=== PATIENT | female | born 1950 | race Caucasian/White ===

== ENCOUNTER → 2018-03-30 08:10 | Outpatient (CLI) | payer MEDICARE, OTHER, SELFPAY ==
[2018-03-30 10:22] LABS: Vitamin D 25 Hydroxy (D3) 45.5 ng/mL (30.0-100.0)
[2018-03-30 12:04] LABS: Collection Time Urine 24 Hours; Creatinine 24 Hour Urine 899 mg/day (800-1800); Creatinine Urine Random 57.1 mg/dL; Total Volume Urine 1575 mL
[2018-03-30 15:47] LABS: Calcium 24 Hour Urine 261 mg/day (100-300); Calcium Urine Random 16.6; Collection Time Urine 24 Hours; Total Volume Urine 1575 mL
== END ==
PROVIDERS: Family Provider Nurse Practitioner Family; PCP Nurse Practitioner Family; Visit Provider Internal Medicine Endocrinology, Diabetes & Metabolism
DX: M81.0 Age-related osteoporosis without current pathological fracture (principal)
CPT/HCPCS: 36415; 82306; 82340; 82570

== ENCOUNTER 2021-05-08 08:39 | Emergency (ER) | payer MEDICARE, OTHER, SELFPAY ==
[2021-05-08 09:13] VITALS: BP 114/62; PULSE 76; RESP 14; TEMP 36.8; O2SAT 98; BMI 17.6
--- NOTE | 2021-05-08 09:18 | DI.RAD.S_ITS ---
PROCEDURE: XR WRIST LT MIN 3V INDICATIONS: fall with wrist pain TECHNIQUE: 4 views of the wrist were acquired. COMPARISON: None. FINDINGS: Bones: No acute fractures or dislocations. There is moderate to severe degeneration at the 1st carpometacarpal joint with joint space narrowing, subchondral sclerosis, periarticular osteophytosis, and subchondral cystic changes. There is mild to moderate degeneration at the triscaphe articulation. No suspicious bony lesions. Scaphoid view: Scaphoid appears intact. Soft tissues: There is a small oval calcification measuring up to 0.3 cm adjacent to the trapezium. IMPRESSION: 1. No acute fracture or dislocation. 2. Small oval calcification adjacent to the trapezium suggestive of a prior sprain or avulsion injury along the radial aspect of the carpus. Dictated by: Bacilio Calix M.D. on 05/08/2021 at 9:42 Approved by: Bacilio Calix M.D. on 05/08/2021 at 9:50
--- NOTE | 2021-05-08 09:26 | DI.RAD.S_ITS ---
PROCEDURE: XR HAND LT MIN 3V INDICATIONS: pain/injury TECHNIQUE: 3 views of the hand(s) acquired. COMPARISON: [facility], CR, XR WRIST LT MIN 3V, 05/08/2021, 9:19. FINDINGS: Bones: No acute fractures or dislocations. There is moderate to severe degeneration at the 1st carpometacarpal joint with joint space narrowing, subchondral sclerosis, osteophytosis, and subchondral cystic changes. There is mild to moderate degeneration at the triscaphe articulation. Mild degeneration also noted at the radiocarpal joint. There is degeneration of the interphalangeal joints including moderate degeneration at the 3rd DIP joint. No suspicious bony lesions. Soft tissues: There is a small oval calcification measuring up to 3 mm adjacent to the trapezium. IMPRESSION: 1. No acute fracture or dislocation. 2. Small calcification adjacent to the trapezium likely representing sequelae of a prior avulsion injury or sprain along the radial aspect of the carpus. 3. Osteoarthritic changes of the hand as described including moderate to severe degeneration at the 1st carpometacarpal joint and moderate degeneration at the 3rd DIP joint. Dictated by: Bacilio Calix M.D. on 05/08/2021 at 9:50 Approved by: Bacilio Calix M.D. on 05/08/2021 at 9:52
--- NOTE | 2021-05-08 09:40 | ED.LOWEXIN ---
HPI - Extremity Injury (Lower) General Chief Complaint: Extremity Injury, Upper Stated Complaint: FELL AND HURT WRIST Time Seen by Provider: 05/08/21 09:24 Source: patient Mode of arrival: Ambulatory Limitations: no limitations History of Present Illness HPI Narrative: Patient is right handed. She slipped and fell yesterday on concrete. Fell backwards and posted her left hand out. She has iced the wrist area. Has taken ibuprofen as well. No numbness tingling or weakness. No previous injury to this hand or wrist. Denies any other injury Related Data Home Medications Medication Instructions Recorded Confirmed alendronate 70 mg tablet 70 mg PO QWEEK #0 01/30/17 aspirin 81 mg tablet,delayed 81 mg PO DAILY 05/21/19 05/21/19 release (Adult Aspirin Regimen) biotin PO 05/21/19 05/21/19 calcium carbonate [Antacid PO 05/21/19 05/21/19 (calcium carbonate)] coenzyme Q10 10 mg capsule (Co 10 mg PO ONCE 05/21/19 05/21/19 Q-10) magnesium carbonate PO 05/21/19 05/21/19 metoprolol succinate 25 mg capsule 25 mg PO DAILY 05/21/19 05/21/19 sprinkle, ext. release 24 hr multivitamin 1 tab PO DAILY 05/21/19 05/21/19 omega-3 fatty acids 1,000 mg 1,000 mg PO DAILY 05/21/19 05/21/19 capsule trazodone 50 mg tablet 25 mg PO BEDTIME PRN 05/21/19 05/21/19 Allergies Allergy/AdvReac Type Severity Reaction Status Date / Time meperidine [From Demerol] AdvReac Intermediate vomiting Verified 05/08/21 09:18 oxycodone [OXYCODONE] AdvReac Mild vomiting Verified 05/08/21 09:18 Review of Systems Review of Systems Narrative: GENERAL: Denies chills, fatigue, malaise, fever, sweats. HEENT: Denies sinus pain, ear pain, sore throat RESPIRATORY: Denies dyspnea, cough CARDIOVASCULAR: Denies chest pain, palpitations GASTROINTESTINAL: Denies nausea, vomiting, abdominal pain : Denies dysuria, frequency, hematuria MUSCULOSKELETAL: Positive muscle or bony pain SKIN: Denies rash, skin lesions NEUROLOGIC: Denies weakness, numbness ROS Unobtainable: All systems reviewed & are unremarkable except as noted in HPI and below Patient History Social History Smoking Status: Unknown if ever smoked Smoking Status: Unknown if ever smoked alcohol intake frequency: a few times a month Substance Use Type: does not use Exam Narrative Exam Narrative: GENERAL: in no distress, not toxic not dyspneic HEAD: Normocephalic. EXTREMITIES: No gross deformities. Examination left upper extremity elbow to fingertips exposed. Nontender elbow. Able to flex and extend at the elbow without difficulty. Able to flex extend the wrist but limited with pain. No gross deformity. There is dorsal erythema and edema of the wrist. Fingers warm soft and pink. 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 Strong radial pulse. Light touch intact arm and fingers. No skin injury. NEURO: AOx4. SKIN: Warm and dry PSYCH: Not anxious, is cooperative Initial Vital Signs Initial Vital Signs: Vital Signs Temperature 98.3 F 05/08/21 09:13 Pulse Rate 76 05/08/21 09:13 Respiratory Rate 14 05/08/21 09:13 Blood Pressure 114/62 05/08/21 09:13 Pulse Oximetry 98 05/08/21 09:13 Procedures Orthopedic Splinting/Casting Injury #1: Time of procedure: 10:31 Side: left Upper Extremity Injury Location: wrist Other Orthopedic Equipment: other (Velcro wrist splint) Post splinting neuro exam: intact Post splinting vascular exam: intact Placed by: Nursing Course Course Course Narrative: No new issues during course of stay Orders Ordered: ED Orders 05/08/21 09:18 XR wrist LT min 3V Stat 05/08/21 09:26 XR hand LT min 3V Stat Reevaluation(s) Reevaluation #1: Reviewed with patient x-ray results and splinting indicated. Agrees with treatment plan and follow-up Time: 10:31 Vital Signs Vital signs: Vital Signs - 8 hr 05/08/21 09:13 05/08/21 11:05 Temperature 98.3 F Pulse Rate 76 76 Respiratory Rate 14 18 Blood Pressure 114/62 110/55 L Pulse Oximetry 98 99 MDM - Extremity Injury (Lower) Imaging Data Extremity x-ray #1: Radiologist's Impression: [address] [address] XRay Report Signed Patient: Shikha Roy MR#: [id number] : 1950 Acct:[id number] Age/Sex: 70 / F Date of Service: 05/08/21 Loc: ED Accession Number: [id number] ?? Procedure: XR hand LT min 3V Ordering Provider: Dane Oscar MD PROCEDURE:? XR HAND LT MIN 3V ? INDICATIONS:? pain/injury ? TECHNIQUE:? 3 views of the hand(s) acquired.? ? COMPARISON:? [facility], CR, XR WRIST LT MIN 3V, 05/08/2021, 9:19. ? FINDINGS:? ? Bones:? No acute fractures or dislocations.? There is moderate to severe degeneration at the 1st carpometacarpal joint with joint space narrowing, subchondral sclerosis, osteophytosis, and subchondral cystic changes.? There is mild to moderate degeneration at the triscaphe articulation.? Mild degeneration also noted at the radiocarpal joint.? There is degeneration of the interphalangeal joints including moderate degeneration at the 3rd DIP joint.? No suspicious bony lesions.? ? Soft tissues:? There is a small oval calcification measuring up to 3 mm adjacent to the trapezium. ? IMPRESSION:? ? 1. No acute fracture or dislocation. ? 2. Small calcification adjacent to the trapezium likely representing sequelae of a prior avulsion injury or sprain along the radial aspect of the carpus. ? 3. Osteoarthritic changes of the hand as described including moderate to severe degeneration at the 1st carpometacarpal joint and moderate degeneration at the 3rd DIP joint.? ? ? Dictated by: Bacilio Calix M.D. on 05/08/2021 at 9:50 ? ? Approved by: Bacilio Calix M.D. on 05/08/2021 at 9:52 ? Extremity x-ray #2: Radiologist's Impression: [address] [address] XRay Report Signed Patient: Shikha Roy MR#: [id number] : 1950 Acct:[id number] Age/Sex: 70 / F Date of Service: 05/08/21 Loc: ED Accession Number: [id number] ?? Procedure: XR wrist LT min 3V Ordering Provider: Dane Oscar MD PROCEDURE:? XR WRIST LT MIN 3V ? INDICATIONS: fall with wrist pain ? TECHNIQUE:? 4 views of the wrist were acquired.? ? COMPARISON:? None. ? FINDINGS:? ? Bones:? No acute fractures or dislocations.? There is moderate to severe degeneration at the 1st carpometacarpal joint with joint space narrowing, subchondral sclerosis, periarticular osteophytosis, and subchondral cystic changes.? There is mild to moderate degeneration at the triscaphe articulation.? No suspicious bony lesions.? ? Scaphoid view:? Scaphoid appears intact. ? Soft tissues:? There is a small oval calcification measuring up to 0.3 cm adjacent to the trapezium. ? IMPRESSION:? ? 1. No acute fracture or dislocation. ? 2. Small oval calcification adjacent to the trapezium suggestive of a prior sprain or avulsion injury along the radial aspect of the carpus.? ? ? Dictated by: Bacilio Calix M.D. on 05/08/2021 at 9:42 ? ? Approved by: Bacilio Calix M.D. on 05/08/2021 at 9:50 ? MDM Narrative Medical decision making narrative: Appropriate for discharge home. Return precautions reviewed patient and have repeat imaging if not improving 7 or 10 days. Referral for Orthopedics given. Not toxic discharge. Please note template used was lower extremity. Upper extremity template should have been used Discharge Plan Departure Patient Disposition: Home Clinical Impression: Sprain and strain of wrist Instructions: DI for Wrist Sprain Activity Restrictions/Additional Instructions: Use wrist splint for comfort. Continue ibuprofen for pain. Ice and elevate wrist 20 minutes at a time as needed for pain and swelling. Call provided orthopedic office for office recheck in 7 or 10 days. May need repeat x-ray of hand and wrist if not improving in 10 days. Return if worse if any questions or concerns Prescriptions: No Action metoprolol succinate 25 mg capsule,sprinkle,ER 24hr 25 mg PO DAILY 0RF trazodone 50 mg tablet 25 mg PO BEDTIME PRN0RF multivitamin Tablet 1 tab PO DAILY 0RF calcium carbonate PO 0RF coenzyme Q10 [Co Q-10] 10 mg capsule 10 mg PO ONCE 0RF biotin PO 0RF magnesium carbonate PO 0RF aspirin [Adult Aspirin Regimen] 81 mg tablet,delayed release (DR/EC) 81 mg PO DAILY 0RF omega-3 fatty acids 1,000 mg capsule 1,000 mg PO DAILY 0RF alendronate 70 MG tablet 70 mg PO QWEEK Qty: 0 0RF Referrals: Grayson Cabello MD [Primary Care Provider] - Jose Diallo MD [Physician] -
--- NOTE | 2021-05-08 10:16 | PC.NURSE ---
swelling noted to outer wrist.
[2021-05-08 11:05] VITALS: BP 110/55; PULSE 76; RESP 18; O2SAT 99
== END 2021-05-08 11:05 | disposition home or self-care (01) ==
PROVIDERS: Emergency Provider Emergency Medicine; PCP Internal Medicine Geriatric Medicine
DX: S63.502A Unspecified sprain of left wrist, initial encounter (principal); W01.0XXA Fall on same level from slipping, tripping and stumbling without subsequent striking against object, initial encounter
CPT/HCPCS: 29260; 73110; 73130; 99283

== ENCOUNTER → 2022-01-30 10:33 | Outpatient (CLI) | payer MEDICARE, OTHER, SELFPAY ==
--- NOTE | 2022-01-30 10:40 | DI.RAD.S_ITS ---
PROCEDURE: XR FINGER RT MIN 2V INDICATIONS: Unspecified deformity of right finger(s) TECHNIQUE: AP hand, 2 views of the right 4th finger(s) acquired. COMPARISON: None. FINDINGS: Bones: Extensor avulsion type fracture fracture fragment overlying the fourth DIP, with no clear donor site but presumably from the dorsal plate of the distal phalanx. No suspicious bony lesions. Soft tissues: No suspicious soft tissue calcifications. IMPRESSION: Extensor tendon avulsion fracture of the distal phalanx. Dictated by: Con Villasenor M.D. on 01/30/2022 at 15:19 Approved by: Con Villasenor M.D. on 01/30/2022 at 15:33
== END ==
PROVIDERS: PCP Internal Medicine Geriatric Medicine; Referring Provider Internal Medicine Geriatric Medicine; Visit Provider Internal Medicine Geriatric Medicine
DX: S62.634A Displaced fracture of distal phalanx of right ring finger, initial encounter for closed fracture (principal); M20.001 Unspecified deformity of right finger(s); X58.XXXA Exposure to other specified factors, initial encounter
CPT/HCPCS: 73140